=== PATIENT | male | born 1965 | race Caucasian/White ===

== ENCOUNTER 2016-08-13 06:06 | Emergency (ER) | payer BC ==
[~2016-08-13] VITALS: Ht 195.6 cm; Wt 108.2 kg
[2016-08-13 06:08] VITALS: TEMP 98
[2016-08-13 06:48] LABS: BASO # 0.1 (0.0-0.2); BASO % 0.7 % (0.0-2.0); EOS # 0.1 (0.0-0.7); EOS % 1.1 % (0-4.0); GRAN # 7.3 (1.4-6.5); GRAN % 77.1 % (42.2-75.2); HEMATOCRIT 44.3 % (42.0-52.0); HEMOGLOBIN 14.9 g/dl (13.5-18.0); LYMPH # 1.3 (1.2-3.4); LYMPH % 13.5 % (20.0-51.0); MEAN CELL VOLUME 90 fl (80.0-100.0); MEAN CORPUSCULAR HEMOGLOBIN 30 pg (27.0-31.0); MEAN CORPUSCULAR HGB CONC 34 g/dl (33.0-37.0); MEAN PLATELET VOLUME 9.8 fl (7.4-10.4); MONO # 0.7 (0.1-0.6); MONO % 7.2 % (1.7-9.3); PLATELET COUNT 243 K/mm3 (130-400); RED BLOOD COUNT 4.92 M/mm3 (4.20-5.60); REDCELL DISTRIBUTION WIDTH-CV 12.8 % (11.5-14.5); WHITE BLOOD COUNT 9.5 K/mm3 (4.8-10.8)
[2016-08-13 06:51] LABS: PH 6 (5-8); SQUAMOUS EPITHELIAL 0-2 /hpf; URINE APPEARANCE Cloudy; URINE BACTERIA None Seen /hpf; URINE BILIRUBIN Negative (NEGATIVE); URINE BLOOD 3+ (NEGATIVE); URINE COLOR Yellow; URINE GLUCOSE Negative (NEGATIVE); URINE KETONE Negative (NEGATIVE); URINE RBC >50 /hpf; URINE UROBILINOGEN Negative (NEGATIVE); URINE WBC None Seen /hpf
[2016-08-13 07:09] LABS: ADJUSTED CALCIUM 8.8 mg/dL (8.4-10.2); ALBUMIN 4.8 gm/dL (3.5-5.0); BILIRUBIN,TOTAL 1.7 mg/dL (0.0-1.0); CALCIUM 9.4 mg/dL (8.4-10.2); CREATININE, serum 1.13 mg/dL (0.66-1.25); POTASSIUM 4.1 mmol/L (3.4-5.0); TOTAL PROTEIN 8.1 gm/dL (6.4-8.2)
[2016-08-13] MEDS ORDERED: NORCO 325 MG-51 TAB PO (08:02)
[2016-08-13] MEDS ORDERED: ZOFRAN ODT4 MG PO (08:02)
[2016-08-13] MEDS ORDERED: CEFTIN500 MG PO (08:02)
[2016-08-13 08:38] VITALS: BP 121/64; PULSE 69
== END 2016-08-13 08:41 | disposition home or self-care (01) ==
LOC: COL.ER 06:06
PROVIDERS: Emergency Medicine
DX: N13.2 Hydronephrosis with renal and ureteral calculous obstruction (principal)
CPT/HCPCS: J0696; J1885; J2765; J3010; J7030; Q9967

== ENCOUNTER 2016-10-31 08:27 | Emergency (ER) | payer BC ==
[~2016-10-31] VITALS: Ht 195.6 cm; Wt 106.8 kg
[~2016-10-31 08:27] MED LIST: CEFTIN500 MG PO; NORCO 325 MG-51 TAB PO; ZOFRAN ODT4 MG PO
[2016-10-31 08:34] VITALS: TEMP 98.2
[2016-10-31] MEDS ORDERED: TAMBOCOR50 MG PO (08:36)
[2016-10-31 09:19] LABS: ADJUSTED CALCIUM 8.7 mg/dL (8.4-10.2); ALBUMIN 4.4 gm/dL (3.5-5.0); BILIRUBIN,TOTAL 1.3 mg/dL (0.0-1.0); CREATININE, serum 1.25 mg/dL (0.66-1.25); TOTAL PROTEIN 8.1 gm/dL (6.4-8.2)
[2016-10-31 09:32] LABS: BASO # 0.1 (0.0-0.2); BASO % 1.2 % (0.0-2.0); EOS # 0.3 (0.0-0.7); EOS % 3.4 % (0-4.0); GRAN # 4.3 (1.4-6.5); GRAN % 50.5 % (42.2-75.2); HEMATOCRIT 43.3 % (42.0-52.0); HEMOGLOBIN 14.9 g/dl (13.5-18.0); LYMPH # 2.7 (1.2-3.4); MEAN CELL VOLUME 89 fl (80.0-100.0); MEAN CORPUSCULAR HEMOGLOBIN 31 pg (27.0-31.0); MEAN CORPUSCULAR HGB CONC 34 g/dl (33.0-37.0); MEAN PLATELET VOLUME 10.1 fl (7.4-10.4); MONO # 1.1 (0.1-0.6); MONO % 12.7 % (1.7-9.3); PLATELET COUNT 270 K/mm3 (130-400); RED BLOOD COUNT 4.85 M/mm3 (4.20-5.60); REDCELL DISTRIBUTION WIDTH-CV 12.9 % (11.5-14.5); WHITE BLOOD COUNT 8.4 K/mm3 (4.8-10.8)
[2016-10-31 09:33] LABS: TROPONIN-I 0.039 ng/mL (0.000-0.034)
[2016-10-31 09:35] LABS: INR 0.9 (0.8-3.0); PROTHROMBIN TIME 10.3 SECONDS (9.7-12.8)
[2016-10-31 09:38] LABS: PARTIAL THROMBOPLASTIN TIME 29.4 SECONDS (26.0-37.0)
[2016-10-31 10:30] VITALS: BP 120/88; PULSE 83
== END 2016-10-31 11:00 | disposition home or self-care (01) ==
LOC: COL.ER 08:27
PROVIDERS: Family Medicine
DX: I48.91 Unspecified atrial fibrillation (principal)
CPT/HCPCS: J2704; J7030

== ENCOUNTER 2018-04-08 09:03 | Emergency (ER) | payer BC ==
[~2018-04-08] VITALS: Ht 190.5 cm; Wt 106.8 kg
[~2018-04-08 09:03] MED LIST changes: +TAMBOCOR50 MG PO
[2018-04-08 10:06] LABS: BASO # 0.1 (0.0-0.2); BASO % 1.5 % (0.0-2.0); EOS # 0.5 (0.0-0.7); EOS % 5.2 % (0-4.0); GRAN % 46.3 % (42.2-75.2); HEMATOCRIT 45.4 % (42.0-52.0); HEMOGLOBIN 15.6 g/dl (13.5-18.0); LYMPH # 3.1 (1.2-3.4); LYMPH % 35.8 % (20.0-51.0); MEAN CELL VOLUME 88 fl (80.0-100.0); MEAN CORPUSCULAR HEMOGLOBIN 30 pg (27.0-31.0); MEAN CORPUSCULAR HGB CONC 34 g/dl (33.0-37.0); MEAN PLATELET VOLUME 10.3 fl (7.4-10.4); PLATELET COUNT 253 K/mm3 (130-400); RED BLOOD COUNT 5.15 M/mm3 (4.20-5.60); REDCELL DISTRIBUTION WIDTH-CV 12.3 % (11.5-14.5)
[2018-04-08 10:13] LABS: ALBUMIN 4.5 gm/dL (3.5-5.0); BILIRUBIN,TOTAL 1.6 mg/dL (0.0-1.0); CALCIUM 9.6 mg/dL (8.4-10.2); CREATININE, serum 1.55 mg/dL (0.66-1.25); POTASSIUM 3.5 mmol/L (3.4-5.0)
[2018-04-08] MEDS ORDERED: TOPROL XL 25MG25 MG PO (12:15)
[2018-04-08 13:05] VITALS: BP 133/97; PULSE 79; TEMP 97.2
== END 2018-04-08 13:06 | disposition home or self-care (01) ==
LOC: COL.ER 09:03
PROVIDERS: Emergency Medicine
DX: I48.91 Unspecified atrial fibrillation (principal)
CPT/HCPCS: G9654; J0282; J2704; J7060

== ENCOUNTER 2018-11-24 08:51 | Emergency (ER) | payer BC ==
[~2018-11-24] VITALS: Ht 195.6 cm; Wt 111.4 kg
[~2018-11-24 08:51] MED LIST changes: +TOPROL XL 25MG25 MG PO
[2018-11-24 09:02] VITALS: TEMP 97.5
[2018-11-24] MEDS ORDERED: TOPROL XL100 MG PO ×2 (09:07→12:19)
[2018-11-24 09:32] LABS: BASO # 0.1 (0.0-0.2); EOS # 0.5 (0.0-0.7); EOS % 5.7 % (0-4.0); GRAN # 4.5 (1.4-6.5); HEMATOCRIT 45.5 % (42.0-52.0); HEMOGLOBIN 15.3 g/dl (13.5-18.0); LYMPH # 2.7 (1.2-3.4); LYMPH % 29.9 % (20.0-51.0); MEAN CELL VOLUME 91 fl (80.0-100.0); MEAN CORPUSCULAR HEMOGLOBIN 31 pg (27.0-31.0); MEAN CORPUSCULAR HGB CONC 34 g/dl (33.0-37.0); MEAN PLATELET VOLUME 10.2 fl (7.4-10.4); MONO # 1.2 (0.1-0.6); MONO % 13.1 % (1.7-9.3); PLATELET COUNT 240 K/mm3 (130-400); RED BLOOD COUNT 4.98 M/mm3 (4.20-5.60)
[2018-11-24 09:33] LABS: INR 0.8 (0.8-3.0); PROTHROMBIN TIME 9.5 SECONDS (9.7-12.8)
[2018-11-24 09:35] LABS: PARTIAL THROMBOPLASTIN TIME 28.5 SECONDS (26.0-37.0)
[2018-11-24 09:39] LABS: ALANINE AMINOTRANSFERASE 43 U/L (21-72); ALBUMIN 4.3 gm/dL (3.5-5.0); ALKALINE PHOSPHATASE 135 U/L (50-136); ANION GAP 10 mmol/L (7-16); AST,SGOT 34 U/L (15-37); BILIRUBIN,TOTAL 1.1 mg/dL (0.0-1.0); BLOOD UREA NITROGEN 14 mg/dL (9-20); CALCIUM 9.1 mg/dL (8.4-10.2); CARBON DIOXIDE 28 mmol/L (22-30); CHLORIDE 105 mmol/L (98-107); CREATININE, serum 1.35 (0.66-1.25); GLUCOSE 102 mg/dL (74-106); POTASSIUM 4.2 mmol/L (3.4-5.0); SODIUM 143 mmol/L (137-145)
[2018-11-24 09:52] LABS: TROPONIN-I < 0.012 ng/mL (0.000-0.035)
[2018-11-24 12:11] VITALS: BP 126/86; PULSE 70
[2018-11-24] MEDS ORDERED: TAMBOCOR 1100 MG/TAB PO (12:20)
[2018-11-24] MEDS ORDERED: XARELTO20 MG PO (12:20)
== END 2018-11-24 12:23 | disposition home or self-care (01) ==
LOC: COL.ER 08:51
PROVIDERS: Family Medicine
DX: I48.91 Unspecified atrial fibrillation (principal)
CPT/HCPCS: J2704; J7030

== ENCOUNTER 2019-02-28 06:18 | Emergency (ER) | payer BC ==
[~2019-02-28] VITALS: Ht 193 cm; Wt 113.6 kg
[~2019-02-28 06:18] MED LIST changes: +TAMBOCOR 1100 MG/TAB PO; +TOPROL XL100 MG PO; +XARELTO20 MG PO
[2019-02-28 06:30] VITALS: TEMP 97.6
[2019-02-28] MEDS ORDERED: ELIQUIS 5MG PO (06:34)
[2019-02-28] MEDS ORDERED: PRILOTC (06:35)
[2019-02-28 06:49] LABS: BASO # 0.1 (0.0-0.2); BASO % 1.2 % (0.0-2.0); EOS # 0.5 (0.0-0.7); EOS % 4.7 % (0-4.0); GRAN % 51.3 % (42.2-75.2); HEMATOCRIT 44.8 % (42.0-52.0); LYMPH % 30.8 % (20.0-51.0); MEAN CELL VOLUME 91 fl (80.0-100.0); MEAN CORPUSCULAR HEMOGLOBIN 31 pg (27.0-31.0); MEAN CORPUSCULAR HGB CONC 34 g/dl (33.0-37.0); MEAN PLATELET VOLUME 9.6 fl (7.4-10.4); MONO # 1.1 (0.1-0.6); MONO % 11.7 % (1.7-9.3); PLATELET COUNT 245 K/mm3 (130-400); REDCELL DISTRIBUTION WIDTH-CV 12.4 % (11.5-14.5)
[2019-02-28 06:59] LABS: PROTHROMBIN TIME 11.5 SECONDS (9.7-12.8)
[2019-02-28 07:01] LABS: ALBUMIN 4.3 gm/dL (3.5-5.0); BILIRUBIN,TOTAL 0.9 mg/dL (0.0-1.0); CALCIUM 9.4 mg/dL (8.4-10.2); CREATININE, serum 1.43 (0.66-1.25); POTASSIUM 3.8 mmol/L (3.4-5.0)
[2019-02-28 07:12] LABS: TROPONIN-I 0.02 ng/mL (0.000-0.035)
[2019-02-28] MEDS ORDERED: CORDARONE200 MG/TAB PO (11:03)
[2019-02-28 11:10] VITALS: BP 121/94; PULSE 74
== END 2019-02-28 11:20 | disposition home or self-care (01) ==
LOC: COL.ER 06:18
PROVIDERS: Emergency Medicine
DX: I48.91 Unspecified atrial fibrillation (principal); I10 Essential (primary) hypertension
CPT/HCPCS: J0282; J2704; J7030; J7060

== ENCOUNTER 2019-12-15 19:23 | Emergency (ER) | payer BC ==
[~2019-12-15] VITALS: Ht 195.6 cm; Wt 109.1 kg
[~2019-12-15 19:23] MED LIST changes: +CORDARONE200 MG/TAB PO; +ELIQUIS 5MG PO; +PRILOTC
[2019-12-15 19:28] VITALS: TEMP 97.7
[2019-12-15 20:58] VITALS: BP 137/97; PULSE 80
== END 2019-12-15 21:09 | disposition home or self-care (01) ==
LOC: COL.ER 19:23
DX: I48.91 Unspecified atrial fibrillation (principal)
CPT/HCPCS: J7030